=== PATIENT | male | born 1970 | race Caucasian/White ===

== ENCOUNTER 2016-09-26 10:23 | Day surgery (SDC) | payer OTHER ==
[~2016-09-26] VITALS: Ht 172.7 cm; Wt 110.2 kg
[~2016-09-26 10:23] MED LIST: ASPIRIN81 M2 PO; DULERA 100 MCG/13 GM IH; FLONASE ALLERG9.9 ML BOTH NARES; MULTIPLE VITAM1 EACH PO; SIMVASTATIN40 MG PO; SINGULAIR10 MG PO; VENTOLIN HFA18 GM IH
[2016-09-26 10:47] VITALS: BP 130/72
[2016-09-26] MEDS ORDERED: NORCO 5/3251 TABLET PO (12:32)
[2016-09-26 13:10] VITALS: BP 173/83
[2016-09-26 13:46] VITALS: BP 139/77
== END 2016-09-26 13:56 | disposition home or self-care (01) ==
LOC: SDC 10:23
PROC: 0JB70ZZ Excision of Back Subcutaneous Tissue and Fascia, Open Approach (ICD-10-PCS; principal; 2016-09-26)
DX: D17.39 Benign lipomatous neoplasm of skin and subcutaneous tissue of other sites (principal); J45.909 Unspecified asthma, uncomplicated; E78.5 Hyperlipidemia, unspecified; Z79.82 Long term (current) use of aspirin; Z68.39 Body mass index [BMI] 39.0-39.9, adult
CPT/HCPCS: 88304; J0690; J2250; J3010